=== PATIENT | male | born 1955 | race American Indian/Alaskan Native ===

== ENCOUNTER 2016-07-21 06:10 | Inpatient (IN) | payer BC ==
[2016-07-15 11:35] LABS: Basophils % (Auto) 0.5 % (0.0-1.8); Eosinophils % (Auto) 2.5 % (0.0-4.3); Hematocrit 44.1 % (35.5-45.6); Hemoglobin 14.6 gm/dl (11.8-15.2); Mean Corpuscular HGB Conc 33 % (32-34); Mean Corpuscular Hemoglobin 30 pg (28-32); Mean Corpuscular Volume 91 fl (84-94); Platelet Count 180 K/mm3 (140-440); Red Blood Count 4.85 M/mm3 (3.65-5.03); Red Cell Distribution Width 13.8 % (13.2-15.2); White Blood Count 4.7 K/mm3 (4.5-11.0)
[2016-07-15 11:45] LABS: INR 1.02 (0.87-1.13); Partial Thromboplastin Time 30.3 Sec. (24.2-36.6)
--- NOTE | 2016-07-15 11:45 | Anesthesia Consultation ---
Anesthesia Consult and Med Hx Date of service: 07/21/16 - Airway Anesthetic Teeth Evaluation: Good ROM Head & Neck: Adequate Mental/Hyoid Distance: Adequate Mallampati Class: Class II Intubation Access Assessment: Probably Good - Pulmonary Exam CTA: Yes - Cardiac Exam Cardiac Exam: RRR - Pre-Operative Health Status ASA Pre-Surgery Classification: ASA2 Proposed Anesthetic Plan: General - Pulmonary Hx Smoking: No Hx Sleep Apnea: Yes (DX SLEEP APNEA , USES BIPAP) - Cardiovascular System Hx Hypertension: No Hx Peripheral Vascular Disease: No (PT UNAWARE) - Central Nervous System Hx Neuromuscular Disorder: Yes (Parkinsons DX) - Other Systems Hx Cancer: Yes (Prostate) - Additional Comments Anesthesia Medical History Comments: HX of severe agitation when waking from surgery, high cholesterol doesnt take meds
[2016-07-15 11:51] LABS: Alanine Aminotransferase 15 units/L (7-56); Albumin 4.1 g/dL (3.9-5); Albumin/Globulin Ratio 1.5 %; Alkaline Phosphatase 60 units/L (35-129); Anion Gap 17 mmol/L; BUN/Creatinine Ratio 14.16; Bilirubin,Total 0.5 mg/dL (0.1-1.2); Blood Urea Nitrogen 17 mg/dL (9-20); Calcium 9.4 mg/dL (8.4-10.2); Carbon Dioxide 25 mmol/L (22-30); Chloride 105.4 mmol/L (98-107); Glucose 120 mg/dL (75-100); Potassium 4.4 mmol/L (3.6-5.0); Sodium 143 mmol/L (137-145); Total Protein 6.8 g/dL (6.3-8.2)
[~2016-07-21 06:10] MED LIST: ANCEF/STERILE WATER 2 GM/20 ML IV NR; PEPCID IV NR; VERSED IV NR
[2016-07-21] MEDS ORDERED: NACL BACTERIOSTATIC INFILTRATI ONE (06:21)
[2016-07-21] MEDS: NACL 0.9% 1000 ML 1,000 ML IV SCH ×3 (06:40→18:47)
[2016-07-21] MEDS ORDERED: SUBLIMAZE ONE ×2 (06:59→11:24)
[2016-07-21] MEDS ORDERED: DIPRIVAN 10 MG/ML IV ONE (06:59)
[2016-07-21] MEDS ORDERED: NEO SYNEPHRINE/NS Syringe(OR USE) IV ONE (08:00)
[2016-07-21] MEDS ORDERED: CLONIDINE 1,000 MCG/10 ML VIAL EP ONE (08:00)
[2016-07-21] MEDS ORDERED: TORADOL ONE (08:00)
[2016-07-21] MEDS ORDERED: DILAUDID IV PRN (08:39)
[2016-07-21] MEDS ORDERED: ZOFRAN IV PRN ×2 (08:39→11:50)
--- NOTE | 2016-07-21 08:39 | Anesthesia Day of Surgery ---
Anesthesia Day of Surgery - Day of Surgery Patient Examined: Yes Patient H&P Reviewed: Yes Patient is NPO: Yes
[2016-07-21] MEDS ORDERED: DECADRON ONE (09:24)
[2016-07-21] MEDS ORDERED: LACTATED RINGERS 1,000 ML ONE ×2 (09:24→11:15)
[2016-07-21] MEDS ORDERED: ZOFRAN ONE (09:24)
[2016-07-21] MEDS ORDERED: QUELICIN ONE (09:24)
[2016-07-21] MEDS ORDERED: ZEMURON IV ONE (09:24)
[2016-07-21] MEDS ORDERED: ROBINUL ONE (09:24)
[2016-07-21] MEDS ORDERED: XYLOCAINE MPF 2% ONE (09:24)
[2016-07-21] MEDS ORDERED: BLOXIVERZ ONE (09:24)
[2016-07-21] MEDS ORDERED: BENADRYL PO PRN (11:50)
[2016-07-21] MEDS ORDERED: AMBIEN PO PRN (11:50)
[2016-07-21] MEDS ORDERED: NARCAN 0.4 MG/1 ML IV PRN (11:50)
--- NOTE | 2016-07-21 11:50 | Admit Criteria Form ---
Admission Criteria Documentation: AMBULATORY SURGERY EXCEPTION CRITERIA Ambulatory Surgery Exception Criteria ( Place 'X' for any and all applicable criteria): Surgery or procedure performed on ambulatory basis may require inpatient stay for[A] ANY ONE of the following(1)(2)(3)(4)(5)(6)(7)(8)(9): [X] I. A preoperative situation, condition, or finding that warrants inpatient stay as indicated by ANY ONE of the following: [] a) Inpatient care needed because of severity of a disease or condition rather than the surgery (eg, severe cardiac or respiratory disease, severe infection) (15) (16 ) (17) (18) [] b) Emergent procedure (eg, angioplasty for acute ischemia)(19) [] c) Complex surgical approach or situation as indicated by ANY ONE of the following(3): [] i) Open approach needed instead of usual endoscopic, transcatheter, or other less invasive procedure [] ii) Difficult approach because of previous operation [] iii) Airway monitoring required after open neck procedures(20)(21) [] iv) Large mass requiring unusually extensive dissection [] v) Additional complicating feature requiring inpatient care (eg, drain management)(22(23): [X] d) Major surgery in a pt with high anesthetic risk as indicated by ANY ONE of the following (2)(3)(5)(7)(8): [] i) ASA risk class III or higher (severe systemic disease impairing function) [D] [] ii) Advanced age (eg, older than 85 years)(14)(24) [] iii) Symptomatic heart failure(25) [] iv) Symptomatic asthma or COPD(8)(21) [] v) Morbid obesity with hemodynamic or respiratory problems(20)( 21)(26)(27) [X] vi) Obstructive sleep apnea(20)(21) [] vii) Former premature infants who are younger than 60 weeks [] viii) High risk for severe postoperative abnormalities (eg, severe postoperative hypocalcemia after parathyroidectomy for severe hyperparathyroidism)(27)( 28) [] ix) Unstable angina(25) [] e) Drug-related risk requiring inpatient stay as indicated by ANY ONE of the following(5)(10)(14)(32)(33) [] i) Procedure requires discontinuing drugs or other therapy (eg , antiarrhythmic medication, antiseizure medication), which necessitates inpatient observation or treatment.(18)(31) [] ii) Major surgery and high risk drug use as indicated by ANY ONE of the following: [] 1) Active abuse of cocaine or similar drug [] 2) Monoamine oxidase inhibitor use [] 3) Other drug identified as posing risk [] f) Inadequate outpatient care situation as indicated by ANY ONE of the following(5)(10)(14)(32)(33) [] i) Patient lives remote from medical facility and procedure has urgent complication potential, and temporary nearby residence cannot be arranged [] ii) Patient will have postprocedure incapacitation and inadequate assistance at home, or alternative level of care cannot be arranged. [] iii) Patient will have long general anesthesia or procedure side effect resolution time, and competent person to stay with patient on first postoperative night at home or alternative level of care cannot be arranged. []iv) Other inadequate outpatient situation that cannot be handled by other means [] II. A perioperative event, condition, or finding that warrants inpatient stay as indicated by ANY ONE of the following (1)(2)(3): [] a) Inadequate physiologic recovery: cardiovascular, respiratory, or hemodynamic status not normal or near preoperative baseline(18) [] b) Hemodynamic instability [] c) Patient not alert with near normal or baseline mental status [] d) Temperature not normal or as expected and not appropriate for outpatient treatment of condition [] e) Ambulatory or appropriate activity level status not yet achieved post procedure [E](34)(35)(36) [] f) Operative site not appropriate (eg, unexpected or excessive drainage or bleeding) [] g) Postoperative effects not resolved or adequately managed (eg, significant pain or vomiting not appropriate for outpatient or next level of care)(10)(12) [] h) Complicating features requiring inpatient care as indicated by ANY ONE of the following(37): [] i) Severe complications of procedure (eg, bowel injury, airway compromise, vascular injury,severe hemorrhage) [] ii) Extensive (eg, dissection far beyond usual scope of procedure ) or prolonged (eg, 120 minutes beyond usual) surgery needed requiring inpatient postoperative care [] iii) Conversion to an open or complex procedure that requires inpatient care (eg, open vs laparoscopic cholecystectomy, abdominal vs vaginal hysterectomy)(38) [] iv) Comorbid condition or test result identified during or post procedure that requires inpatient care (7) [] v) Malignant hyperthermia(30) [] vi) Other complicating feature requiring inpatient care(22)(23) Inpatient stay may be needed until ALL of the following are present (1)(2)(3)(4) (5)(6)(10)(14)(33)(40): []a) Physiologic recovery: cardiovascular, respiratory, and hemodynamic status normal or near preoperative baseline []b) Hemodynamic stability []c) Patient alert, with near normal or baseline mental status []d) Temperature appropriate: patient afebrile or temperature appropriate for outpt treatment of condition []e) Activity level appropriate: ambulatory or appropriate activity level post procedure []f) Operative site appropriate as indicated by ALL of the following: []i) Site dry or with expected drainage []ii) Any blood noted is as expected for procedure. []g) Postoperative effects resolved or managed as indicated by ALL of the following: []i) Pain management appropriate for outpatient (or next level of) care(10) []ii) Minimal nausea and vomiting: if present, successfully treated with oral medication(12) []iii) Headache, dizziness, or drowsiness (if present) are mild. []h) Voiding status acceptable as indicated by ANY ONE of the following: []i) Voiding spontaneously []ii) No voiding but instructions given for follow-up in 6 to 8 hours []iii) Urinary catheter in place, and instructions given for follow-up []i) Complicating features requiring inpatient care manageable at a lower level of care(37) []j) Comorbid conditions manageable at a lower level of care(37) The original CX content created by [facility] has been revised. The portions of the content which have been revised are identified through the use of italic text or in bold, and [employer] [facility] [employer] has neither reviewed nor approved the modified material. All other unmodified content is copyright [facility]. Please see references footnoted in the original [facility] edition 2016 Admission Criteria Met: Yes
[2016-07-21] MEDS ORDERED: NACL 0.9% IR ONE ×2 (11:52→11:54)
[2016-07-21] MEDS ORDERED: WATER FOR IRRIG STERILE IR ONE (11:52)
[2016-07-21] MEDS ORDERED: MARCAINE-EPI/PF 0.5%-1:200,000 INFILTRATI ONE (11:53)
[2016-07-21] MEDS ORDERED: METHYLENE BLUE IV ONE (11:54)
[2016-07-21] MEDS ORDERED: ACD-A IV ONE (11:54)
[2016-07-21] MEDS ORDERED: THROMBIN (BOVINE) TP ONE (11:55)
[2016-07-21] MEDS ORDERED: CALCIUM CHLORIDE IV ONE (11:55)
--- NOTE | 2016-07-21 12:02 | Short Stay Summary ---
Short Stay Documentation Date of service: 07/21/16 - History H&P: obtained from office - Allergies and Medications Current Medications: Allergies No Known Allergies Allergy (Verified 07/10/16 10:59) Home Medications Medication Instructions Recorded Confirmed Last Taken Type Aspirin [Adult Low Dose Aspirin EC] 81 mg PO DAILY 07/15/16 07/21/16 1 Month Ago History Carbidopa/Levodopa 25-100 [Sinemet 1 tab PO TID 07/15/16 07/15/16 07/20/16 History 25/100] Mirtazapine [Remeron] 30 mg PO QHS 07/15/16 07/21/16 07/19/16 History Ropinirole HCl [Requip Xl] 24 mg PO QHS 07/15/16 07/15/16 07/20/16 History Active Medications Carbidopa/Levodopa (Sinemet) 1 each PO TID JERICA Cefazolin Sodium (Ancef/Sterile Water 2 Gm/20 Ml) 2 gm IV PREOP NR Stop: 07/21/16 23:59 Diphenhydramine HCl (Benadryl) 25 mg PO Q6H PRN PRN Reason: Itching Famotidine (Pepcid) 20 mg IV PREOP NR Stop: 07/21/16 23:59 Last Admin: 07/21/16 06:49 Dose: 20 mg Hydromorphone HCl (Dilaudid) 0.5 mg IV Q10MIN PRN PRN Reason: Pain , Severe (7-10) Stop: 07/21/16 18:00 Sodium Chloride (Nacl 0.9% 1000 Ml) 1,000 mls @ 75 mls/hr IV DIRECT JERICA Last Admin: 07/21/16 06:40 Dose: 75 mls/hr Cefazolin Sodium (Ancef/Ns 1 Gm/50 Ml) 50 mls @ 100 mls/hr IV Q8H JERICA Stop: 07/21/16 20:29 Sodium Chloride (Nacl 0.9% 1000 Ml) 1,000 mls @ 100 mls/hr IV DIRECT JERICA Midazolam HCl (Versed) 2 mg IV PREOP NR Stop: 07/21/16 23:59 Mirtazapine (Remeron) 30 mg PO QHS JERICA Miscellaneous Medication (Ropinirole Hcl [Requip Xl]) 24 mg PO QHS JERICA Morphine Sulfate (Morphine) 4 mg IV Q4H PRN PRN Reason: Pain , Severe (7-10) Naloxone HCl (Narcan 0.4 Mg/1 Ml) 0.1 mg IV Q2MIN PRN PRN Reason: Res Rate </= 8 or 02 SAT < 92% Ondansetron HCl (Zofran) 4 mg IV ONCE PRN PRN Reason: Nausea And Vomiting Stop: 07/21/16 18:40 Ondansetron HCl (Zofran) 4 mg IV Q8H PRN PRN Reason: Nausea And Vomiting Zolpidem Tartrate (Ambien) 5 mg PO QHS PRN PRN Reason: Sleep - Brief post op/procedure progress note Date of procedure: 07/21/16 Pre-op diagnosis: prostate cancer Post-op diagnosis: other (mild stricture) Procedure: robotic prostatectomy flexible cystoscopy Anesthesia: SOFY Surgeon: HOUSTON HEARN Dental Detail Representative: DAYRON SERNA Estimated blood loss: other (250cc) - Hospital course Hospital course: drain removed present home with ceftin & dilaudid - Disposition Condition at discharge: Stable Short Stay Discharge Plan Follow up with: ROBERTO MAHER MD [Primary Care Provider] - 7 Days
--- NOTE | 2016-07-21 12:51 | Post Anesthesia Evaluation ---
- Post Anesthesia Evaluation Patient Participated: Yes Airway Patent: Yes Stable Respiratory Function: Yes Nausea/Vomiting: No Temp > 96.8F: Yes Pain Manageable: Yes Adequeate Hydration: Yes Anesthesia Complications: No Block Receding Appropriately: Not Applicable Patient on Ventilator: No
--- NOTE | 2016-07-21 13:00 | Operative Report ---
PREOPERATIVE DIAGNOSES: Prostate cancer, Delia 7 (4+3), PSA 5, 11/12 cores. POSTOPERATIVE DIAGNOSES: Prostate cancer, Dell 7 (4+3), PSA 5, 11/12 cores. Mild urethral stricture, history of Parkinson's disease. PROCEDURE: Robotic-assisted laparoscopic prostatectomy, flexible cystoscopy. SURGEON: Jovanni Dunlap MD CHANNELER OUTSOLE: Asim Hay. ANESTHESIA: General. ANESTHESIOLOGIST: Mary Wiseman MD ESTIMATED BLOOD LOSS: 250 mL. FLUIDS: Crystalloid. COMPLICATIONS: No complications. INDICATIONS: This patient is a 61-year-old gentleman initially seen by Dr. Jacobson in our group for an elevated PSA of 5.4. He underwent transrectal ultrasound and biopsies of prostate. He was found to have a Dell 7 adenocarcinoma of the prostate, 11/12 cores with perineural invasion. Bone scan and CT scan were unremarkable. He does have a long history of lower back pain and some mild degenerative changes on CT. Options were discussed. Risks, benefits, and complications were explained. The patient agreed to proceed with surgical intervention. DESCRIPTION OF PROCEDURE: The patient was taken to the operative suite, placed in a supine position. After adequate general anesthesia, he was then placed in a modified dorsal lithotomy position, prepped and draped in a sterile fashion. Heath catheter was placed on the operative field, mild difficulty with initial placement. One cm supraumbilical incision was made. Towel clips were placed. Veress needle was used. Drop test negative. Opening pressure was 2 cm of water. Insufflation to 15 cm of water was performed. A 15 cm cephalad to pubic symphysis was marked in the midline and then 9 cm lateral, additional 9 cm lateral, and 8 mm robotic ports were then placed after the 10 cm 0-degree lens port was placed in the midline. No abdominal injury could be appreciated. All ports were introduced without difficulty. The patient was then placed in an exaggerated Trendelenburg position. Robotic cart was docked between the legs. Second arch was scored exposing the seminal vesicles and vas deferens. This was dissected distal to the apex of the prostate. Attention was then taken anteriorly, lateral to the lateral umbilical ligament was scored, then across the midline bladder flap was dropped. The lateral pedicles were taken down, endopelvic fascia was exposed. Dorsal vein complex was controlled with a 45 mm stapler. Heath was manipulated, identified in the bladder neck which was scored anteriorly. The Heath catheter was deflated and retracted anteriorly for . The patient had significant median lobe which a tedious dissection was performed. I was able to dissect the prostate free. Indigo carmine was administered and could be seen in the bladder. Lateral pedicles were then controlled with a 45 mm vascular stapler. [place] of the prostate was dissected free. The prostate was then placed in the EndoCatch bag without difficulty. Copious irrigation was performed. Adequate hemostasis was achieved. The bladder neck was reconstructed using 2-0 Vicryl at the 7 o'clock and 5 o'clock positions. [place] stitch was placed at 12 o'clock position. Double armed V-Loc was then placed at the 6 o'clock position of the bladder neck corresponding aspect of the urethra and a running stitch was placed bilaterally. Attempts to place a Heath catheter were unsuccessful, at this point, I realized the patient had a stricture. Flexible cystoscope was used to try to advance a wire unsuccessfully. The anastomosis was then taken down. Flexible scope was advanced. Wire was placed with a new [place] tip catheter. The anastomosis using a new V-Loc stitch was reconstructed with a wire in the urethra and the bladder. Once all the stitches were placed, a new 16-Setswana new [place] tip catheter was advanced over the wire into the bladder without difficulty. It was then cinched down, 15 mL in the balloon, sterile water in the balloon, irrigated. No leak. No clots. At that point, the V-Loc stitch was placed in the pelvic sidewall. [place] were removed. Platelet rich plasma and platelet poor plasma was injected at the bladder neck. Meng-[place] drain was brought out through the left side of the incision, tied in the position with 2-0 silk in interrupted fashion. The robotic cart was undocked. Prostate was transferred to the supraumbilical incision, which was extended to allow removal. 0 Vicryl [id number] sutures were placed to close the rectus fascia. A 0.25% Marcaine was injected in the subcutaneous tissue. Skin was closed with 4-0 Vicryl in interrupted fashion. Heath catheter and site port was tied over with 0 silk in interrupted fashion. The patient tolerated the procedure well, was extubated and taken to recovery room. He will be observed overnight and go home with his catheter. JOB# [id number] NEVILLE/HANSA
[2016-07-21] MEDS: ANCEF/NS 1 GM/50 ML 50 ML IV SCH ×2 (16:55→23:45)
--- NOTE | 2016-07-21 17:19 | Consultation ---
History of Present Illness - Reason for Consult Consult date: 07/21/16 Medical management Requesting physician: HOUSTON HEARN - History of Present Illness S/p Robotic prostatectomy Post op doing well Past History Past Medical History: other (parkinsonism RLS prostate cancer) Medications and Allergies Allergies Allergy/AdvReac Type Severity Reaction Status Date / Time No Known Allergies Allergy Verified 07/10/16 10:59 Home Medications Medication Instructions Recorded Confirmed Last Taken Type Aspirin [Adult Low Dose Aspirin EC] 81 mg PO DAILY 07/15/16 07/21/16 1 Month Ago History Carbidopa/Levodopa 25-100 [Sinemet 1 tab PO TID 07/15/16 07/15/16 07/20/16 History 25/100] Mirtazapine [Remeron] 30 mg PO QHS 07/15/16 07/21/16 07/19/16 History Ropinirole HCl [Requip Xl] 24 mg PO QHS 07/15/16 07/15/16 07/20/16 History Active Meds: Active Medications Carbidopa/Levodopa (Sinemet) 1 each PO TID JERICA Cefazolin Sodium (Ancef/Sterile Water 2 Gm/20 Ml) 2 gm IV PREOP NR Stop: 07/21/16 23:59 Diphenhydramine HCl (Benadryl) 25 mg PO Q6H PRN PRN Reason: Itching Famotidine (Pepcid) 20 mg IV PREOP NR Stop: 07/21/16 23:59 Last Admin: 07/21/16 06:49 Dose: 20 mg Hydromorphone HCl (Dilaudid) 0.5 mg IV Q10MIN PRN PRN Reason: Pain , Severe (7-10) Stop: 07/21/16 18:00 Sodium Chloride (Nacl 0.9% 1000 Ml) 1,000 mls @ 75 mls/hr IV DIRECT EJRICA Last Admin: 07/21/16 06:40 Dose: 75 mls/hr Cefazolin Sodium (Ancef/Ns 1 Gm/50 Ml) 50 mls @ 100 mls/hr IV Q8H JERICA Stop: 07/22/16 00:29 Sodium Chloride (Nacl 0.9% 1000 Ml) 1,000 mls @ 100 mls/hr IV DIRECT JERICA Midazolam HCl (Versed) 2 mg IV PREOP NR Stop: 07/21/16 23:59 Mirtazapine (Remeron) 30 mg PO QHS JERICA Miscellaneous Medication (Ropinirole Hcl [Requip Xl]) 24 mg PO QHS JERICA Morphine Sulfate (Morphine) 4 mg IV Q4H PRN PRN Reason: Pain , Severe (7-10) Naloxone HCl (Narcan 0.4 Mg/1 Ml) 0.1 mg IV Q2MIN PRN PRN Reason: Res Rate </= 8 or 02 SAT < 92% Ondansetron HCl (Zofran) 4 mg IV ONCE PRN PRN Reason: Nausea And Vomiting Stop: 07/21/16 18:40 Ondansetron HCl (Zofran) 4 mg IV Q8H PRN PRN Reason: Nausea And Vomiting Zolpidem Tartrate (Ambien) 5 mg PO QHS PRN PRN Reason: Sleep Review of Systems All systems: negative Exam - Constitutional Vitals: Temp Pulse Resp BP Pulse Ox 97.5 F L 75 18 140/78 100 07/21/16 16:20 07/21/16 16:20 07/21/16 16:20 07/21/16 16:20 07/21/16 15:33 General appearance: Present: no acute distress, well-nourished - EENT Eyes: Present: PERRL ENT: hearing intact, clear oral mucosa - Neck Neck: Present: supple, normal ROM - Respiratory Respiratory effort: normal Respiratory: bilateral: CTA - Cardiovascular Heart Sounds: Present: S1 & S2. Absent: rub, click - Extremities Extremities: pulses symmetrical, No edema Peripheral Pulses: within normal limits - Abdominal General gastrointestinal: Present: soft, non-tender, non-distended, normal bowel sounds Male genitourinary: Present: normal - Integumentary Integumentary: Present: clear, warm, dry - Musculoskeletal Musculoskeletal: gait normal, strength equal bilaterally - Psychiatric Psychiatric: appropriate mood/affect, intact judgment & insight - Neurologic Neurologic: CNII-XII intact, moves all extremities Results - Labs CBC & Chem 7: 07/15/16 11:10 07/15/16 11:10 Assessment and Plan - Patient Problems (1) Status post surgery Current Visit: Yes Status: Acute Plan to address problem: S/p Robotic Prostatectomy (2) Parkinsonism Current Visit: Yes Status: Chronic Plan to address problem: Resume Sinemet (3) RLS (restless legs syndrome) Current Visit: Yes Status: Chronic Plan to address problem: On requip (4) DVT prophylaxis Current Visit: Yes Status: Acute Plan to address problem: on scd's
[2016-07-21] MEDS: MORPHINE IV PRN (19:30)
[2016-07-21] MEDS: REMERON PO SCH ×3 (21:45→22:34)
[2016-07-21] MEDS ORDERED: ROPINIROLE HCL PO SCH (22:00)
[2016-07-21] MEDS: SINEMET PO SCH ×2 (22:05→22:17)
[2016-07-22] MEDS: NACL 0.9% 1000 ML 1,000 ML IV SCH (04:58)
[2016-07-22 05:46] LABS: Basophils % (Auto) 0.1 % (0.0-1.8); Hematocrit 37.4 % (35.5-45.6); Hemoglobin 12.3 gm/dl (11.8-15.2); Mean Corpuscular HGB Conc 33 % (32-34); Mean Corpuscular Hemoglobin 30 pg (28-32); Mean Corpuscular Volume 91 fl (84-94); Platelet Count 146 K/mm3 (140-440); Red Blood Count 4.12 M/mm3 (3.65-5.03); Red Cell Distribution Width 13.3 % (13.2-15.2); White Blood Count 11.6 K/mm3 (4.5-11.0)
[2016-07-22 05:57] LABS: BUN/Creatinine Ratio 12.14; Blood Urea Nitrogen 17 mg/dL (9-20); Carbon Dioxide 24 mmol/L (22-30); Chloride 106.4 mmol/L (98-107); Glucose 136 mg/dL (75-100); Potassium 4.7 mmol/L (3.6-5.0); Sodium 142 mmol/L (137-145)
[2016-07-22 05:59] LABS: Anion Gap 16 mmol/L
[2016-07-22] MEDS: SINEMET PO SCH ×2 (08:00→14:00)
[2016-07-22 12:10] VITALS: BP 106/65
[2016-07-22] MEDS: MORPHINE IV PRN (12:45)
== END 2016-07-22 14:30 | disposition home or self-care (01) | DRG 708 ==
LOC: OR 06:10 → 2B-SURG 11:50
PROVIDERS: ADMIT Urology; ATTEND Urology
PROC: 0VT04ZZ Resection of Prostate, Percutaneous Endoscopic Approach (ICD-10-PCS; principal; 2016-07-21)
PROC: 8E0W4CZ Robotic Assisted Procedure of Trunk Region, Percutaneous Endoscopic Approach (ICD-10-PCS; 2016-07-21)
PROC: 0TJB8ZZ Inspection of Bladder, Via Natural or Artificial Opening Endoscopic (ICD-10-PCS; 2016-07-21)
DX: C61 Malignant neoplasm of prostate (principal); G25.81 Restless legs syndrome; G20 Parkinson's disease; Z79.82 Long term (current) use of aspirin
CPT/HCPCS: 36415; 80048; 80053; 85025; 85610; 85730; 86850; 86900; 86901; 88305; 88307; 88309; 94660; 94760; A4217; C1769; J0330; J0690; J1100; J1170; J1885; J2250; J2270; J2370; J2405; J2704; J2710; J3010; J7030; J7120; Q9968